=== PATIENT | male | born 1980 | race Two or more races ===

== ENCOUNTER 2022-10-07 08:36 | Emergency (ER) | payer OTHER ==
[~2022-10-07] VITALS: Ht 180.3 cm; Wt 73.3 kg
[2022-10-07 09:54] VITALS: BP 142/79
[2022-10-07] MEDS ORDERED: LIDOCAINE 1% HCL (LOCAL ANESTH.) INJ 20ML MDV ID ONE (10:30)
[2022-10-07] MEDS ORDERED: IBUP1TAB5 PO (11:50)
[2022-10-07] MEDS ORDERED: CEPH-510 PO (11:50)
== END 2022-10-07 12:06 | disposition home or self-care (01) ==
LOC: ER 08:36
DX: S63.296A Dislocation of distal interphalangeal joint of right little finger, initial encounter (principal); V89.9XXA Person injured in unspecified vehicle accident, initial encounter; Y93.89 Activity, other specified; Y92.89 Other specified places as the place of occurrence of the external cause; Y99.8 Other external cause status
CPT/HCPCS: 73130; 99283; J2001